=== PATIENT | female | born 1950 | race Caucasian/White ===

== ENCOUNTER 2017-10-26 08:17 | Day surgery (SDC) | payer MEDICARE, BC ==
[~2017-10-26] VITALS: Ht 175.3 cm; Wt 108.2 kg
[~2017-10-26 08:17] MED LIST: BISA5EC; BUDE10.22; CLOBETTC; CYCL10; ELIQUIS5 MG; HYDCHL12.5; Imitrex100 MG; K-Dur20 MEQ; LOSARTAN POTAS100 MG; METF500; Omeprazole20 M1; SIMV40
[2017-10-26] MEDS ORDERED: L-LYSINE500 MG PO (10:15)
[2017-10-26] MEDS ORDERED: FISH OIL 1,0001 EAC2 PO (10:15)
[2017-10-26] MEDS ORDERED: UBID10 (10:15)
[2017-10-26] MEDS ORDERED: TURMERIC500 M2 PO (10:16)
[2017-10-26] MEDS ORDERED: Calcium 250+D1 EACH PO (10:16)
== END 2017-10-26 11:45 | disposition home or self-care (01) ==
LOC: ORSCSDS 08:17
PROVIDERS: Internal Medicine Gastroenterology
PROC: 0DJD8ZZ Inspection of Lower Intestinal Tract, Via Natural or Artificial Opening Endoscopic (ICD-10-PCS; principal; 2017-10-26 10:30)
DX: Z12.11 Encounter for screening for malignant neoplasm of colon (principal); Z86.010 Personal history of colon polyps; K57.30 Diverticulosis of large intestine without perforation or abscess without bleeding; K64.8 Other hemorrhoids; Z80.0 Family history of malignant neoplasm of digestive organs; I10 Essential (primary) hypertension; E11.9 Type 2 diabetes mellitus without complications; K21.9 Gastro-esophageal reflux disease without esophagitis; E78.2 Mixed hyperlipidemia; E66.9 Obesity, unspecified; Z68.35 Body mass index [BMI] 35.0-35.9, adult; Z79.01 Long term (current) use of anticoagulants; Z79.84 Long term (current) use of oral hypoglycemic drugs; Z79.899 Other long term (current) drug therapy
CPT/HCPCS: 82947; J7120

== ENCOUNTER 2018-03-08 08:41 | Day surgery (SDC) | payer MEDICARE, BC ==
[~2018-03-08] VITALS: Ht 175.3 cm; Wt 103.9 kg
[~2018-03-08 08:41] MED LIST changes: -CYCL10; +CYCL10 PO; +Calcium 250+D1 EACH PO; -ELIQUIS5 MG; +ELIQUIS5 MG PO; +FISH OIL 1,0001 EAC2 PO; -HYDCHL12.5; +HYDCHL12.5 PO; +K-Dur20 MEQ PO; +L-LYSINE500 MG PO; -LOSARTAN POTAS100 MG; +LOSARTAN POTAS100 MG PO; -METF500; +METF500C PO; -Omeprazole20 M1; +Omeprazole20 M1 PO; -SIMV40; +SIMV40 PO; +TURMERIC500 M2 PO; +UBID10
[2018-03-08] MEDS ORDERED: GLIM2 (09:58)
[2018-03-08] MEDS ORDERED: ROSU10TA (10:00)
== END 2018-03-08 11:55 | disposition home or self-care (01) ==
LOC: ORSCSDS 08:41
PROVIDERS: Internal Medicine Gastroenterology
PROC: 0DBN8ZX Excision of Sigmoid Colon, Via Natural or Artificial Opening Endoscopic, Diagnostic (ICD-10-PCS; principal; 2018-03-08 10:30)
PROC: 0DBM8ZX Excision of Descending Colon, Via Natural or Artificial Opening Endoscopic, Diagnostic (ICD-10-PCS; principal; 2018-03-08 10:30)
PROC: 0DBK8ZX Excision of Ascending Colon, Via Natural or Artificial Opening Endoscopic, Diagnostic (ICD-10-PCS; principal; 2018-03-08 10:30)
DX: Z12.11 Encounter for screening for malignant neoplasm of colon (principal); D12.2 Benign neoplasm of ascending colon; Z86.010 Personal history of colon polyps; Z80.0 Family history of malignant neoplasm of digestive organs; D12.4 Benign neoplasm of descending colon; D12.5 Benign neoplasm of sigmoid colon; I10 Essential (primary) hypertension; E11.9 Type 2 diabetes mellitus without complications; E78.5 Hyperlipidemia, unspecified; Z79.899 Other long term (current) drug therapy; Z86.718 Personal history of other venous thrombosis and embolism; Z79.01 Long term (current) use of anticoagulants; K64.8 Other hemorrhoids
CPT/HCPCS: 82947; 88305; J7120

== ENCOUNTER 2019-02-21 06:51 | Day surgery (SDC) | payer MEDICARE, BC ==
[~2019-02-21] VITALS: Ht 175.3 cm; Wt 102.6 kg
[~2019-02-21 06:51] MED LIST changes: +BUDE10.22 INH; +GLIM2; +Imitrex100 MG PO; +ROSU10TA
[2019-02-21] MEDS ORDERED: ROSU10TA PO (07:53)
--- NOTE | 2019-02-21 09:51 | NUR ---
02/21/19 0951 BillMilanra Cheney WHEN GETTING READY TO WALK PT OUT PT STATES THAT SHE HAS SOME SLIGHT DISCOMFORT HERE AND POINT TO HER CHEST REGION. DR. TAVERA NOTIFIED. DR TAVERA STATES MODERATE DISCOMFORT OK. TO MONITOR AND LET HIM KNOW IF HE WORSENS. COULD BE FROM EXPANDING COLON WITH CO2. DR. TAVERA STATES OK TO DISCHARGE. PT AND SISTER NOTIFIED OF THIS. BOTH STATE AN UNDERSTANDING.
== END 2019-02-21 09:50 | disposition home or self-care (01) ==
LOC: ORSCSDS 06:51
PROVIDERS: Internal Medicine Gastroenterology
PROC: 0DBK8ZX Excision of Ascending Colon, Via Natural or Artificial Opening Endoscopic, Diagnostic (ICD-10-PCS; principal; 2019-02-21 08:30)
DX: Z12.11 Encounter for screening for malignant neoplasm of colon (principal); D12.2 Benign neoplasm of ascending colon; K57.30 Diverticulosis of large intestine without perforation or abscess without bleeding; Z86.010 Personal history of colon polyps; Z80.0 Family history of malignant neoplasm of digestive organs; Z86.718 Personal history of other venous thrombosis and embolism; I10 Essential (primary) hypertension; E11.9 Type 2 diabetes mellitus without complications; K21.9 Gastro-esophageal reflux disease without esophagitis; E78.2 Mixed hyperlipidemia; Z79.01 Long term (current) use of anticoagulants; Z79.84 Long term (current) use of oral hypoglycemic drugs; Z79.899 Other long term (current) drug therapy
CPT/HCPCS: 82947; 88305; J2704; J7120